=== PATIENT | female | born 1985 | race African-American/Black ===

== ENCOUNTER → 2018-12-17 | Outpatient (CLI) | payer OTHER | LOC: COL.RAD 10:30 | DX: M54.5 Low back pain (principal) | CPT/HCPCS: G0260; J3301 ==

== ENCOUNTER → 2019-06-03 | Outpatient (CLI) | payer OTHER | LOC: COL.RAD 05-12 14:15 | DX: M25.551 Pain in right hip (principal) | CPT/HCPCS: J3301; Q9967 ==

== ENCOUNTER → 2019-11-12 | Outpatient (CLI) | payer OTHER | LOC: COL.RAD 09:30 | DX: S39.011A Strain of muscle, fascia and tendon of abdomen, initial encounter (principal) | CPT/HCPCS: J3301; Q9967 ==